=== PATIENT | male | born 1975 | race Caucasian/White ===

== ENCOUNTER → 2017-10-31 08:33 | Outpatient (REF) | payer MEDICAID, SELFPAY ==
[2017-10-31 12:09] LABS: HCT 45.8 % (40.0-50.0); HGB 15.8 g/dL (13.5-17.5); Mean Corp. HGB Concentration 34.5 g/dL (32.0-36.0); Mean Corpuscular Hemoglobin 33.8 pg (27.0-33.0); Mean Corpuscular Volume 97.9 fL (80-95); Mean Platelet Volume 11.4 fL (8.0-11.0); Platelet Count 246 x1000/uL (130-400); RBC 4.68 m/cumm (4.50-6.00); RBC Distribution Width 12.8 % (11.8-14.1); White Blood Cell Count 6.69 k/cumm (4.4-10.8)
[2017-10-31 12:20] LABS: ALT 57 U/L (12-78); AST 28 U/L (15-37); Albumin 4.5 g/dL (3.4-5.0); Alkaline Phosphatase 71 U/L (46-116); Anion Gap 5.6 mmol/L (3-11); BUN 14 mg/dL (7-18); Bilirubin, Total 0.6 mg/dL (0.2-1.0); CO2 30.4 mmol/L (21.0-32.0); CREATININE 1.15 mg/dL (0.70-1.30); Calcium 9.7 mg/dL (8.5-10.1); Chloride 105 mmol/L (98-107); Cholesterol 195 mg/dL (50-200); Glucose 112 mg/dL (70-100); HDL Cholesterol 49 mg/dL (40-60); LDL CHOLESTEROL 145 mg/dL (<100); Potassium 4.5 mmol/L (3.5-5.1); Sodium 141 mmol/L (136-145); Total Protein 7.4 g/dL (6.4-8.2)
[2017-10-31 12:29] LABS: Triglyceride < 25 mg/dL (30-150)
== END ==
LOC: NCHCN 08:33
PROVIDERS: PCP Nurse Practitioner Family; Visit Provider Nurse Practitioner Family
DX: R42 Dizziness and giddiness (principal); Z00.00 Encounter for general adult medical examination without abnormal findings
CPT/HCPCS: 80053; 80061; 83721; 85027

== ENCOUNTER → 2017-11-05 09:29 | Outpatient (REF) | payer MEDICAID, SELFPAY ==
[2017-11-06 11:05] LABS: Hepatitis C Ab w Rflx HCV PCR Reactive (NEGAT)
[2017-11-06 11:52] LABS: HIV-1/2 Ag & Ab Screen Negative (NEGAT)
[2017-11-06 15:16] LABS: Chlamydia Result Negative; GC Result Negative; Specimen Description URINE
[2017-11-07 15:22] LABS: HCV RNA Detection Quantitative Undetected IU/mL (UNDECT)
== END ==
LOC: NCHCN 09:29
PROVIDERS: PCP Nurse Practitioner Family; Visit Provider Nurse Practitioner Family
DX: Z11.3 Encounter for screening for infections with a predominantly sexual mode of transmission (principal); Z11.59 Encounter for screening for other viral diseases; Z11.4 Encounter for screening for human immunodeficiency virus [HIV]
CPT/HCPCS: 86803; 87389; 87491; 87591; 87522

== ENCOUNTER 2018-04-15 17:45 | Emergency (ER) | payer MEDICAID, SELFPAY ==
[2018-04-15 17:47] VITALS: BP 128/87; PULSE 76; TEMP 36.7; O2SAT 94
--- NOTE | 2018-04-15 17:54 | W.ED.GENAD ---
Discharge Plan Disposition Patient Disposition: HOME Condition: Fair Discharge Details Chief Complaint: GenMedical Clinical Impression: Flu-like symptoms, Elevated liver enzymes Primary Care Provider: Theresa De Leon ED Provider: Marichuy Mai Home Meds and New Rx's Prescriptions: New ondansetron 4 mg tablet,disintegrating 4 mg PO QID PRN (Reason: nausea and vomiting) Qty: 10 RF: 0 Discharge Instructions Instructions: Influenza (ED) Additional Instructions: Encourage hydration. Tylenol and/or Motrin as needed for discomfort. Zofran as prescribed for nausea/vomiting. If you develop shortness of breath, difficulty breathing, inability to stay hydrated or other new/worsening symptoms please seek care urgently once again. Please follow up with primary care next week for reevaluation and to discuss having your liver enzymes rechecked. Thank you Referrals: Theresa De Leon [Primary Care Provider] - Discharge Data Discharge Date/Time-TO BE ENTERED AT DEPARTURE: 04/15/18 20:28 Medical Decision Making Patient 42-year-old male presenting today with chief complaint of cough, nausea/vomiting, fatigue times 5 days. Reports a family members have had the flu but he has been around and is concerned that he may have contracted this. He complains that he is unable to hydrate he feels quite weak. On exam, he does appear dehydrated. Lungs are clear. No abdominal pain on exam. Will give IV fluids, IV Zofran and obtain baseline labs. As he also reports cough has been worsening over the past 2 days, concerned for possible pneumonia. Patient smokes marijuana frequently, will obtain cxr. Labs concerning for potassium of 3.3, we will replenish this here. AST and ALT are also elevated, these have not been elevated historically. I discussed these findings with the patient. No history of hepatitis or large amount of alcohol consumption. Advised this may be linked to his current viral illness and that he should have this rechecked once well by his primary care physician CXR reviewed by radiologist: FINDINGS: The cardiomediastinal silhouette and pulmonary vasculature are within normal limits. The lungs are clear. No pleural effusion or pneumothorax is identified. IMPRESSION: No acute process. Discussed this with the patient. Advised flu-like illness. As he is out of the window for treatment, did not test for influenza. He is hydrating, able to eat crackers and took oral potassium. Prescribed Zofran for nausea. Advised on new/worsening symptoms and when to seek care urgently once again. Advised f/u with PCP next week for reevaluation and to discuss elevated liver enzymes. All ofhis questions and concerns were addressed, he is in agreement iwth this plan. HPI General Date/Time Provider Initiated Documentation: 04/15/18 17:54. Related Data Home Medications Medication Instructions Recorded Confirmed ondansetron 4 mg PO QID PRN #10 tab 04/15/18 Previous Rx's Medication Instructions Recorded ondansetron 4 mg PO QID PRN #10 tab 04/15/18 Allergies Allergy/AdvReac Type Severity Reaction Status Date / Time No Known Allergies Allergy Unverified 12/02/14 17:15 General Stated Complaint: GenMedical BRAD: 3 PFSH Social History Smoking/Tobacco Use Status: Former Tobacco Use Course Vital Signs Temperature 36.7 C 04/15/18 17:47 Pulse 76 04/15/18 17:47 Blood Pressure 128/87 04/15/18 17:47 Pulse Oximetry 94 L 04/15/18 17:47 Temperature 36.7 C 04/15/18 17:47 Temperature Source Temporal Artery Scan 04/15/18 17:47 Pulse 76 04/15/18 17:47 Respiratory Effort Non-Labored 04/15/18 17:49 Blood Pressure 128/87 04/15/18 17:47 Blood Pressure Position Supine 04/15/18 17:47 Pulse Oximetry 94 L 04/15/18 17:47 Oxygen Delivery Method Room Air 04/15/18 17:47 Oxygen Flow Rate 0 04/15/18 17:47
[2018-04-15] MEDS: Normal Saline 1,000 ML 1000 ML IV ×2 (18:05→19:04)
[2018-04-15 18:18] LABS: Absolute Basophil Count 0.02 k/cumm (0.0-0.2); Absolute Lymphocyte Count 1.37 k/cumm (1.2-3.4); Absolute Monocyte Count 0.61 k/cumm (0.11-0.7); Basophils % 0.5; HCT 42.3 % (40.0-50.0); HGB 15.3 g/dL (13.5-17.5); Lymphocytes % 31.9; Mean Corp. HGB Concentration 36.2 g/dL (32.0-36.0); Mean Corpuscular Hemoglobin 33.4 pg (27.0-33.0); Mean Corpuscular Volume 92.4 fL (80-95); Mean Platelet Volume 9.8 fL (8.0-11.0); Monocytes % 14.2; Neutrophils % 53.4; Platelet Count 222 x1000/uL (130-400); RBC 4.58 m/cumm (4.50-6.00); RBC Distribution Width 12.7 % (11.8-14.1)
[2018-04-15 18:45] LABS: ALT 119 U/L (12-78); AST 82 U/L (15-37); Alkaline Phosphatase 75 U/L (46-116); Anion Gap 9.7 mmol/L (3-11); BUN 18 mg/dL (7-18); Bilirubin, Total 0.6 mg/dL (0.2-1.0); CO2 27.3 mmol/L (21.0-32.0); CREATININE 1.18 mg/dL (0.70-1.30); Chloride 103 mmol/L (98-107); Glucose 91 mg/dL (70-100); Potassium 3.3 mmol/L (3.5-5.1); Sodium 140 mmol/L (136-145); Total Protein 7.5 g/dL (6.4-8.2)
[2018-04-15] MEDS: Ondansetron 4 MG/2 ML VIAL IVP (18:58)
[2018-04-15 19:05] VITALS: BP 109/55; PULSE 70; RESP 20; TEMP 36.9; O2SAT 95
--- NOTE | 2018-04-15 19:15 | NUR.NOTE ---
Nursing Note: Pt on second liter of fluid, given water and saline crackers to trial po challenge. persistent cough. awaiting CXR. no acute distress, will continue to monitor.
[2018-04-15] MEDS: Potassium Chloride 20 MEQ TABCR PO (19:16)
--- NOTE | 2018-04-15 19:35 | DI.RAD_ITS ---
SYMPTOM/DIAGNOSIS: COUGH PA AND LATERAL CHEST: The heart is normal in size. The lungs are clear. The mediastinal structures and pleura appear intact. CONCLUSION: Normal chest. No evidence of acute cardiopulmonary disease.
--- NOTE | 2018-04-15 20:05 | DI.VRAD_ITS ---
EXAM: XR Chest, 2 Views EXAM DATE/TIME: 04/15/2018 7:14 PM CLINICAL HISTORY: 42 years old, male; Signs and symptoms; Cough; Patient HX: Cough and flu like symptoms since saturday TECHNIQUE: XR of the chest, 2 views. COMPARISON: No relevant prior studies available. FINDINGS: The cardiomediastinal silhouette and pulmonary vasculature are within normal limits. The lungs are clear. No pleural effusion or pneumothorax is identified. IMPRESSION: No acute process. Dictated and Authenticated by: Johan Stephens MD. Ordering:TEE Benedict MD
[2018-04-15] MEDS: Ondansetron O.D.T. 4 MG TABEF 12 MG PO (20:24)
[2018-04-15 20:27] VITALS: PULSE 70; RESP 116; TEMP 36.9; O2SAT 94
== END 2018-04-15 20:28 | disposition home or self-care (01) ==
PROVIDERS: Emergency Provider Physician Assistant; PCP Nurse Practitioner Family
DX: J11.1 Influenza due to unidentified influenza virus with other respiratory manifestations (principal); R94.5 Abnormal results of liver function studies
CPT/HCPCS: 36415; 80053; 96361; 96374; 99284; 71046; 85025; J2405

== ENCOUNTER 2018-09-04 18:07 | Emergency (ER) | payer MEDICAID, SELFPAY ==
[2018-09-04 18:22] VITALS: BP 137/83; PULSE 67; RESP 14; TEMP 37.2; O2SAT 95
--- NOTE | 2018-09-04 18:33 | ED.GENADUL_ITS ---
Discharge Plan Disposition Patient Disposition: HOME Condition: Improving Discharge Details Chief Complaint: Orthopedic Clinical Impression: Contusion of hand, left Primary Care Provider: Theresa De Leon ED Provider: Zaheer Monroe Home Meds and New Rx's Prescriptions: No Action No Known Home Meds RF: 0 Discharge Instructions Instructions: Contusion in Adults (ED) Additional Instructions: Use compression, elevation, ice to reduce swelling. You will likely have bruising that develops over the next 24 hours. Return for any acute concern. Medical Decision Making 43-year-old male who presents with accidental trauma to the left hand when he was air punching at his home and struck his wooden bureau. He has pre-standing left ulnar nerve dysfunction and poor sensation in that hand. He presents with left hand swelling and discomfort. Referred for XRay, which does not reveal underlying bony fracture. Discussed home management the patient including compression, elevation, ice to reduce swelling. He understands to expect bruising. He is stable for discharge to home HPI General Mode of arrival: ambulatory . Date/Time Provider Initiated Documentation: 09/04/18 18:25 . Limitations to Documentation: no limitations . Information obtained by: patient . History of Present Illness 43 year old M presents to the emergency department with the chief complaint of Accidental blunt trauma to left hand, described as mild, Quality is described as dull and constant, and is localized to the upper extremity. Patient reports no radiation. Patient started experiencing this minute(s) and it has been constant. No relieving factors improve symptom(s), No exacerbating factors reported . Patient notes other (Patient has pre-standing ulnar nerve dysfunction and poor sensation of hand). Patient did receive the following treatments prior to arrival, none Related Data Home Medications Medication Instructions Recorded Confirmed Unknown [No Known Home Meds] 09/04/18 09/04/18 Allergies Allergy/AdvReac Type Severity Reaction Status Date / Time No Known Allergies Allergy Unverified 09/04/18 18:26 General Stated Complaint: Orthopedic BRAD: 3 Review of Systems Review of Systems No other injury. No new numbness or tingling. 4 systems reviewed and otherwise no PFSH Social History Smoking/Tobacco Use Status: Former Tobacco Use Alcohol Intake: current Drug use: Never Do you feel safe at home: Yes Do you feel safe in your relationship?: Yes Exam Narrative Exam Narrative: GEN: awake, alert, oriented 3. Pleasant, well groomed, interactive. HEAD: Normocephalic, atraumatic EXT: Full ROM, left hand fourth and fifth metacarpal tenderness and swelling. Full range of motion intact, sensation is diminished at baseline per patient Neuro: Grossly normal neurologic exam, conversant, interactive. Psych: Speech fluent, thoughts congruent, affect normal Course Vital Signs Temperature 37.2 C 09/04/18 18:22 Pulse 67 09/04/18 18:22 Respiratory Rate 14 09/04/18 18:22 Blood Pressure 137/83 09/04/18 18:22 Pulse Oximetry 95 09/04/18 18:22 Temperature 37.2 C 09/04/18 18:22 Temperature Source Temporal Artery Scan 09/04/18 18:22 Pulse 67 09/04/18 18:22 Respiratory Rate 14 09/04/18 18:22 Respiratory Effort Non-Labored 09/04/18 18:24 Blood Pressure 137/83 09/04/18 18:22 Blood Pressure Position Sitting 09/04/18 18:22 Pulse Oximetry 95 09/04/18 18:22 Oxygen Delivery Method Room Air 09/04/18 18:22 Oxygen Flow Rate 0 09/04/18 18:22 Pain Level 0 09/04/18 18:25
--- NOTE | 2018-09-04 18:42 | DI.RAD_ITS ---
SYMPTOM/DIAGNOSIS: PAIN AT 4/5TH METACARPAL LEFT HAND: Three views. Comparison 12/02/14 There is an old healed left 5th metacarpal fracture. No acute fracture or dislocation is seen. No radiopaque foreign bodies are seen in the soft tissues. IMPRESSION: No acute abnormality.
--- NOTE | 2018-09-04 18:56 | DI.VRAD_ITS ---
EXAM: XR Left Hand EXAM DATE/TIME: 09/04/2018 6:31 PM CLINICAL HISTORY: 43 years old, male; Pain; Hand; Bilateral; Patient HX: 4/5th metacarpal TECHNIQUE: Imaging protocol: XR Left hand. Views: 3 or more views. COMPARISON: No relevant prior studies available. FINDINGS: Bones/joints: No acute fractures are identified. There is a chronic healed fracture of the distal left fifth metacarpal. Normal alignment. Carpal relationships are normal. The visualized distal radius and ulna are well aligned and intact. Soft tissues: Question mild medial dorsal soft tissue swelling. No foreign bodies. IMPRESSION: 1. No evidence of acute fracture or dislocation. 2. Chronic healed fracture of the distal left fifth metacarpal. 3. Question mild medial dorsal soft tissue swelling. 4. No foreign body. Dictated and Authenticated by: Celestine Scherer MD. Ordering:CHANCE Schwab MD
== END 2018-09-04 19:17 | disposition home or self-care (01) ==
PROVIDERS: Emergency Provider Emergency Medicine; PCP Nurse Practitioner Family
DX: S60.222A Contusion of left hand, initial encounter (principal); W22.03XA Walked into furniture, initial encounter
CPT/HCPCS: 99283; 73130; 99282

== ENCOUNTER 2019-06-21 07:41 | Emergency (ER) | payer SELFPAY ==
[2019-06-21] VITALS (26 sets, daily range): BP systolic 110–131; BP diastolic 69–79; PULSE 41–69; TEMP 36.7; O2SAT 94–99
--- NOTE | 2019-06-21 08:18 | W.ED.GENAD ---
Discharge Plan Disposition Patient Disposition: HOME Condition: Stable Discharge Details Chief Complaint: Abd Prob Clinical Impression: Renal stone Primary Care Provider: Theresa De Leon ED Provider: Trevor Carney Home Meds and New Rx's Prescriptions: New tamsulosin [Flomax] 0.4 mg capsule 0.4 mg PO DAILY Qty: 5 RF: 0 naproxen [Naprosyn] 500 mg tablet 500 mg PO BID Qty: 10 RF: 0 Discharge Instructions Instructions: Kidney Stones (ED) Additional Instructions: Flomax and Naprosyn as directed. Plenty of fluids to avoid dehydration. Please watch for new or worsening symptoms and return to the ER for any concerns. I have forwarded your information to our urology team, please contact them tomorrow for prompt outpatient reevaluation. Referrals: Brian Burroughs MD [ [facility] STAFF PHYSICIAN] - Medical Decision Making 43-year-old gentleman with a history of vasectomy last October, reports chronic aching in his groin since the procedure. This morning upon waking roughly 1 hour ago he reports severe right back and flank discomfort that does not radiate down to his groin. Denies any true abdominal pain, increased testicle pain, denies testicle swelling. He appears uncomfortable, is dry heaving. Clinically I am highly suspicious of a renal stone however certainly cannot exclude diagnoses such as acute appendicitis, inguinal hernia, testicle torsion, epididymitis, UTI, etc. Will obtain IV access, give IV fluid, Zofran, Toradol, obtain CT abdomen and pelvis for renal colic without contrast and reassess. Upon reassessment patient reports that his pain went from a 9 out of 10 down to a 3, is just a dull ache, and he feels this in his right lower back. Denies any flank discomfort at this time. Reports that the aching in his groin-testicles is baseline. He appears much more comfortable, no longer dry heaving. Laboratory values benign, still awaiting urinalysis. A second liter of IV fluid given. I reviewed the CT, there appears to be a right-sided stone however awaiting official radiology read. For full radiology read the CT as right ureteral vesicular junction 5 mm stone causing moderate hydroureter and mild hydronephrosis. Punctate nonobstructing left nephrolithiasis. Bladder is decompressed but there is mild circumferential wall thickening, recommend clinical correlation. Possibly mild hepatic steatosis. CT findings discussed with patient. Awaiting urinalysis to be sure he does not have an infected stone. Did place the patient on the urology follow-up list and will give the patient urology referral to contact their office tomorrow. He was given oral Flomax as well. Urinalysis reveals hematuria otherwise unremarkable, no signs of infection. Discussed findings with patient. He has no additional questions or concerns. Reports his pain is almost nonexistent at this point and is tolerated p.o. intake while here in the ER. He will be discharged with Flomax, anti-inflammatories, and contact urology tomorrow. Given his laboratory values, and positive CT findings, extremely low suspicion for appendicitis, UTI, infected stone, pyelonephritis, testicular torsion, etc. Medical Records Medical records reviewed: Yes I reviewed the patient's medical records. Imaging Data Radiologic Study: Attestation: I personally reviewed and interpreted this imaging study as follows: Imaging: CT Scan Radiologist's impression: Right ureterovesicular junction 5 mm stone causing moderate hydroureter and mild hydronephrosis. Punctate nonobstructing left nephrolithiasis. Bladder is decompressed, mild wall thickening. Possibly mild hepatic steatosis Lab Data Lab results reviewed: Yes I reviewed the patient's lab results. Lab results narrative: Laboratory Tests Range/Units 06/21/19 06/21/19 06/21/19 07:50 07:50 11:11 WBC (4.4-10.8) k/cumm 9.56 RBC (4.50-6.00) m/cumm 4.86 Hgb (13.5-17.5) g/dL 16.3 Hct (40.0-50.0) % 46.7 MCV (80-95) fL 96.1 H MCH (27.0-33.0) pg 33.5 H MCHC (32.0-36.0) g/dL 34.9 RDW (11.8-14.1) % 13.2 Plt Count (130-400) x1000/uL 342 MPV (8.0-11.0) fL 10.7 Immature Gran % % 0.2 Neutrophils % 52.0 Lymphocytes % 34.6 Monocytes % 7.3 Eosinophils % 5.6 Basophils % 0.3 Absolute Neutrophils (1.2-6.7) k/cumm 4.96 Absolute Lymphocytes (1.2-3.4) k/cumm 3.31 Absolute Monocytes (0.11-0.7) k/cumm 0.70 Absolute Eosinophils (0.0-0.7) k/cumm 0.54 Absolute Basophils (0.0-0.2) k/cumm 0.03 Sodium (136-145) mmol/L 142 Potassium (3.5-5.1) mmol/L 4.0 Chloride (98-107) mmol/L 106 Carbon Dioxide (21.0-32.0) mmol/L 28.3 Anion Gap (3-11) mmol/L 7.7 BUN (7-18) mg/dL 14 Creatinine (0.70-1.30) mg/dL 1.18 Estimated GFR/1.73 m2 (mL/min/1.73m2) >= 60.00 Glucose (74-106) mg/dL 107 H Calcium (8.5-10.1) mg/dL 9.5 Total Bilirubin (0.2-1.0) mg/dL 0.3 AST (15-37) U/L 25 ALT (16-63) U/L 49 Alkaline Phosphatase (46-116) U/L 78 Total Protein (6.4-8.2) g/dL 7.6 Albumin (3.4-5.0) g/dL 4.2 Lipase (73-393) U/L 440 H Urine Color (Yellow) Yellow Urine Clarity (Clear) Clear Urine pH (5-8) 6.5 Ur Specific Coulter (1.005-1.025) 1.015 Urine Protein (Negative) mg/dL Negative Urine Ketones (Negative) mg/dL Negative Urine Blood (Negative) Large H Urine Nitrite (Negative) Negative Urine Bilirubin (Negative) Negative Urine Urobilinogen (Up TO 0.2) EU/dL 0.2 Ur Leukocyte Esterase (Negative) Negative Urine RBC (0-2) HPF 20-50 H Urine WBC (0-5) HPF 3-5 Ur Epithelial Cells (Negative) HPF Few Urine Crystals (Negative) HPF Negative Urine Bacteria (Negative) HPF Few Urine Casts (Negative) LPF Negative Urine Mucus (Negative) Negative Urine Other (Negative) Negative Ur Culture Indicated? No Urine Glucose (Negative) mg/dL Negative HPI General Mode of arrival: ambulatory. Date/Time Provider Initiated Documentation: 06/21/19 07:42. Limitations to Documentation: no limitations. Information obtained by: patient. HPI Narrative: This is a 43-year-old gentleman status post vasectomy October of last year. He reports that since the vasectomy he has had some dull aching in his right testicle and groin, has discussed this with his urologist. He reports that this morning approximately 1 hour ago upon waking he had right flank, back, groin and scrotal pain, severe, associated with nausea and dry heaving. Denies any fever, chest pain, shortness of breath, abdominal pain. Denies dysuria or hematuria. No diarrhea or constipation. He reports that when he went to bed last night he was otherwise asymptomatic. Denies recent illness or trauma. Related Data Home Medications Medication Instructions Recorded Confirmed naproxen [Naprosyn] 500 mg PO BID #10 tab 06/21/19 tamsulosin [Flomax] 0.4 mg PO DAILY #5 cap 06/21/19 Previous Rx's Medication Instructions Recorded naproxen [Naprosyn] 500 mg PO BID #10 tab 06/21/19 tamsulosin [Flomax] 0.4 mg PO DAILY #5 cap 06/21/19 Allergies Allergy/AdvReac Type Severity Reaction Status Date / Time No Known Allergies Allergy Unverified 06/21/19 07:48 General Stated Complaint: Abd Prob BRAD: 3 Review of Systems Constitutional Constitutional: Denies fatigue, Denies fever(s) and Denies headache(s) ENT Ears, Nose, Mouth, and Throat: Denies headache(s) and Denies sore throat Cardiovascular Cardiovascular: Denies chest pain and Denies dyspnea Respiratory Respiratory: Denies cough and Denies dyspnea Gastrointestinal Gastrointestinal: Denies abdominal pain, Denies diarrhea, Reports nausea and Reports vomiting Genitourinary Genitourinary: Denies difficulty urinating, Denies dysuria, Reports flank pain (Right flank), Denies penile discharge, Reports testicular pain (Entire scrotum, worse in the right side) and Denies urinary frequency Musculoskeletal Musculoskeletal: Reports back pain Integumentary/Breasts Skin/Breast: Denies rash Neurologic Neurologic: Denies headache(s) Endocrine Endocrine: Denies fatigue [facility] Social History Smoking/Tobacco Use Status: Former Tobacco Use Alcohol Intake: current Drug use: Never Substance use type: marijuana Do you feel safe at home: Yes Do you feel safe in your relationship?: Yes Exam Const General: cooperative, healthy appearing, comfortable and in distress mild (Actively dry heaving) Orientation: alert and awake HENTX Head: normal to inspection, normocephalic and atraumatic Mouth: moist mucous membranes Eyes Conjunctivae: conjunctivae normal Neck Neck: normal visual inspection, trachea midline and supple Resp Effort & Inspection: normal respiratory effort and able to speak in complete sentences Auscultation: clear to auscultation bilaterally Cardio Rate: regular rate Rhythm: regular rhythm GI Inspection: normal to inspection Palpation: soft, not firm, no guarding, not rigid and tender (Diffuse mild right flank) with no rebound tenderness Auscultation: normal bowel sounds Penis: normal penis Meatus: meatus normal Scrotum: scrotum normal and no inguinal hernias Testes: normal Back/Spine/Pelvis Back: back tenderness (Right inferior thoracic, superior lumbar) Skin General skin exam: no rashes or lesions noted Neuro General: patient alert, patient awake, moves all extremities and no focal motor deficits Motor: muscle tone normal throughout Sensory Exam: no sensory deficits noted Psych Appearance: grossly normal Mental Status: mental status grossly normal Course Vital Signs Vital signs: Vital Signs Temperature 36.7 C 06/21/19 07:43 Pulse 69 06/21/19 07:43 Blood Pressure 123/75 06/21/19 07:43 Pulse Oximetry 99 06/21/19 07:43 Temperature 36.7 C 06/21/19 07:43 Temperature Source Oral 06/21/19 07:43 Pulse 69 06/21/19 07:43 Respiratory Effort Non-Labored 06/21/19 07:47 Blood Pressure 123/75 06/21/19 07:43 Blood Pressure Position Sitting 06/21/19 07:43 Pulse Oximetry 99 06/21/19 07:43 Oxygen Delivery Method Room Air 06/21/19 07:43 Oxygen Flow Rate 0 06/21/19 07:43 Pain Level 10 06/21/19 07:43
[2019-06-21] MEDS: Ketorolac 30 MG/ML VIAL IVP (08:23)
[2019-06-21] MEDS: Normal Saline 1,000 ML 1000 ML IV ×2 (08:23→09:20)
[2019-06-21] MEDS: Ondansetron 4 MG/2 ML VIAL IVP (08:24)
--- NOTE | 2019-06-21 08:28 | DI.CT_ITS ---
EXAM: CT RENAL COLIC WO CLINICAL HISTORY: R flank pain TECHNIQUE: The study was performed without contrast. COMPARISON: No exams were available for comparison FINDINGS: Noncontrast CT examination of the abdomen and pelvis was performed. Images obtained through the lung bases are unremarkable. There is question of mild hepatomegaly and mild hepatic steatosis. Gallbla dder has been surgically removed. No biliary dilatation. Unremarkable appearance of the spleen and pancreas. Abdominal aorta is of normal diameter. No abdominal or pelvic adenopathy. No significant abdominal wall hernia. Appendix is normal. No evidence of bowel obstruction or diverticulitis. Adrenals appear normal bilaterally. There are multiple tiny nonobstructing left renal calculi. There is an obstructing 5 millimeter in d iameter calculus of the right ureter at the ureterovesical junction. There is moderate right hydrone phrosis and hydroureter. Urinary bladder is essentially empty. No additional ureteral calcification s identified on either side. IMPRESSION: 5 millimeter obstructing right ureterovesical junction stone. Additional tiny nonobstructing left re nal calculi are also noted.
[2019-06-21 08:31] LABS: Abs Immature Grans 0.02 k/cumm (0.0-0.09); Absolute Basophil Count 0.03 k/cumm (0.0-0.2); Absolute Eosinophil Count 0.54 k/cumm (0.0-0.7); Absolute Lymphocyte Count 3.31 k/cumm (1.2-3.4); Absolute Neutrophil Count 4.96 k/cumm (1.2-6.7); Basophils % 0.3; Eosinophils % 5.6; HCT 46.7 % (40.0-50.0); HGB 16.3 g/dL (13.5-17.5); Immature Grans % 0.2 %; Lymphocytes % 34.6; Mean Corp. HGB Concentration 34.9 g/dL (32.0-36.0); Mean Corpuscular Hemoglobin 33.5 pg (27.0-33.0); Mean Corpuscular Volume 96.1 fL (80-95); Mean Platelet Volume 10.7 fL (8.0-11.0); Monocytes % 7.3; Platelet Count 342 x1000/uL (130-400); RBC 4.86 m/cumm (4.50-6.00); RBC Distribution Width 13.2 % (11.8-14.1); White Blood Cell Count 9.56 k/cumm (4.4-10.8)
[2019-06-21 08:45] LABS: ALT 49 U/L (16-63); AST 25 U/L (15-37); Albumin 4.2 g/dL (3.4-5.0); Alkaline Phosphatase 78 U/L (46-116); Anion Gap 7.7 mmol/L (3-11); BUN 14 mg/dL (7-18); Bilirubin, Total 0.3 mg/dL (0.2-1.0); CO2 28.3 mmol/L (21.0-32.0); CREATININE 1.18 mg/dL (0.70-1.30); Calcium 9.5 mg/dL (8.5-10.1); Chloride 106 mmol/L (98-107); Glucose 107 mg/dL (74-106); Lipase 440 U/L (73-393); Sodium 142 mmol/L (136-145); Total Protein 7.6 g/dL (6.4-8.2)
--- NOTE | 2019-06-21 08:52 | DI.VRAD_ITS ---
PROCEDURE INFORMATION: Exam: CT Abdomen And Pelvis Without Contrast Exam date and time: 06/21/2019 8:10 AM Age: 43 years old Clinical indication: Abdominal pain; Patient HX: Right sided flank pain, radiating anteriorly, and inferiorly to right testicle. Pain since this morning, no history of kidney stones. TECHNIQUE: Imaging protocol: Computed tomography of the abdomen and pelvis without contrast. Radiation optimization: All CT scans at this facility use at least one of these dose optimization techniques: automated exposure control; mA and/or kV adjustment per patient size (includes targeted exams where dose is matched to clinical indication); or iterative reconstruction. COMPARISON: No relevant prior studies available. FINDINGS: Lungs: The visualized portions of the lungs are normal. Liver: Mild diffuse decreased attenuation of the liver when compared to the spleen which could suggest mild steatosis. No focal lesion. Gallbladder and bile ducts: There has been a cholecystectomy. There is no common bile duct dilation. There is no intrahepatic bile duct dilation. Pancreas: Unremarkable. No ductal dilation. Spleen: Unremarkable. No splenomegaly. Adrenals: Unremarkable. No mass. Kidneys and ureters: There is a 5 mm right ureterovesicular junction stone causing moderate hydroureter and mild hydronephrosis. Punctate nonobstructing left nephrolithiasis. No left ureter stones. No left hydronephrosis. Stomach and bowel: Mild diverticulosis is present in the distal colon. There is no evidence of intestinal obstruction. There is no wall thickening to suggest enteritis or colitis. The stomach is normal. Appendix: No evidence of appendicitis. Intraperitoneal space: Unremarkable. No free air. No significant fluid collection. Vasculature: Unremarkable. No abdominal aortic aneurysm. Lymph nodes: Scattered retroperitoneal lymph nodes not particularly enlarged by CT size criteria. Bladder: The urinary bladder is somewhat decompressed with mild circumferential wall thickening. Reproductive: Unremarkable as visualized. Bones/joints: There is no evidence of acute fracture. Mild lumbar spondylosis. No concerning osseous lesion. Soft tissues: Small fat containing umbilical hernia. IMPRESSION: 1. Right ureterovesicular junction 5 mm stone causing moderate hydroureter and mild hydronephrosis. 2. Punctate nonobstructing left nephrolithiasis. 3. Although the urinary bladder is somewhat decompressed there is mild circumferential wall thickening. Recommend clinical correlation. 4. Possibly mild hepatic steatosis. Dictated and Authenticated by: Celestine Alaniz MD. Ordering:CHELLY Murray MD
--- NOTE | 2019-06-21 08:57 | NUR.NOTE ---
[facility]:
[2019-06-21] MEDS: Tamsulosin 0.4 MG CAPCR PO (09:13)
[2019-06-21 11:26] LABS: Bilirubin Negative (Negative); Blood Large (Negative); Clarity Clear (Clear); Glucose Negative (Negative); Ketones Negative (Negative); Leukocyte Esterase Negative (Negative); Nitrite Negative (Negative); Specific Gravity 1.015 (1.005-1.025); Urobilinogen 0.2 EU/dL (Up TO 0.2); pH 6.5 (5-8)
[2019-06-21 11:50] LABS: RBC 20-50 HPF (0-2)
[2019-06-21 11:51] LABS: Bacteria Few HPF (Negative); C & S Indicated? No; Casts Negative LPF (Negative); Crystals Negative HPF (Negative); Epithelial Cells Few HPF (Negative); Mucus Negative (Negative); Other Cells Negative (Negative)
== END 2019-06-21 09:28 | disposition home or self-care (01) ==
PROVIDERS: Emergency Provider Physician Assistant; PCP Nurse Practitioner Family
DX: N13.2 Hydronephrosis with renal and ureteral calculous obstruction (principal); N13.4 Hydroureter
CPT/HCPCS: 36415; 80053; 83690; 96361; 96374; 96375; 99284; 74176; 81003; 81015; 85025; J1885; J2405

== ENCOUNTER 2022-04-12 16:38 | Outpatient (REF) | payer SELFPAY ==
[2022-04-12 18:41] LABS: ALT 80 U/L (16-63); AST 48 U/L (15-37); Albumin 4.6 g/dL (3.4-5.0); Alkaline Phosphatase 84 U/L (46-116); Bilirubin, Direct 0.2 mg/dL (0.0-0.2); Bilirubin, Total 0.6 mg/dL (0.2-1.0); Total Protein 7.6 g/dL (6.4-8.2)
== END 2022-04-12 16:39 | disposition home or self-care (01) ==
LOC: NCHCN 16:38
PROVIDERS: PCP Nurse Practitioner Family; Visit Provider Nurse Practitioner Family
DX: Z00.00 Encounter for general adult medical examination without abnormal findings (principal); R73.03 Prediabetes
CPT/HCPCS: 80076

== ENCOUNTER 2022-05-10 19:12 | Outpatient (REF) | payer SELFPAY ==
[2022-05-10 19:13] LABS: HCT 44.9 % (40.0-50.0); HGB 15.1 g/dL (13.5-17.5); MCH 32.3 pg (27.0-33.0); MCHC 33.6 % (32.0-36.0); MCV 96 fL (80-95); MPV 10.3 fL (8.0-11.0); Platelet Count 309 10^3/uL (130-400); RBC 4.67 10^6/uL (4.36-5.78); RDW 13.4 % (11.8-14.1); RDW-SD 47.8 fL; WBC 9.05 10^3/uL (4.4-10.8)
[2022-05-10 19:19] LABS: INR 0.9 (0.9-1.1); Prothrombin Time 9.3 sec (9.3-11.0)
[2022-05-10 19:37] LABS: Iron 82 ug/dL (65-175); Total Iron Binding Capacity 335 ug/dL (250-450); Transferrin Sat 24 % (20-55)
[2022-05-10 19:41] LABS: Ferritin 191 ng/mL (26-388)
[2022-05-14 11:26] LABS: Hepatitis C Ab w Rflx HCV PCR Reactive (Negative)
[2022-05-14 13:19] LABS: HBs Antibody, Quant <3.1 mIU/mL (See Note); Hepatitis B Surface Ab Negative (See Note)
[2022-05-16 14:08] LABS: HCV RNA Qualitative Undetected (Undetected)
== END 2022-05-10 19:13 | disposition home or self-care (01) ==
LOC: NCHCN 19:12
PROVIDERS: PCP Nurse Practitioner Family; Visit Provider Nurse Practitioner Family
DX: R74.8 Abnormal levels of other serum enzymes (principal)
CPT/HCPCS: 85027; 86706; 86803; 87522; 82728; 83540; 83550; 85610

== ENCOUNTER 2022-05-28 02:12 | Outpatient (CLI) | payer OTHER, SELFPAY ==
--- NOTE | 2022-05-28 | DI.MRI_ITS ---
Exam(s) MR UPPER JOINT RT WO EXAM: MR UPPER JOINT RT WO CLINICAL HISTORY: BICEPS TENDINITIS,M75.21,SUBACROMIAL IMPINGEMENT,M75.41,NEURAPRAXIA. TECHNIQUE: Multiplanar multisequence MRI was performed. COMPARISON: Outside plain films April 16 FINDINGS: BONES: There is no fracture or contusion pattern. JOINTS:The acromioclavicular joint is shows mild spurring. There is apparent mild impingement at thi s level. Spurring at tip of acromion. The glenohumeral joint is normal. TENDONS: Supraspinatus: Areas of focal high signal in the supraspinatus tendon could represent partial tear ve rsus tendinitis.. No full-thickness tear is visible. Infraspinatus: Unremarkable. Subscapularis: Unremarkable. Teres Minor: Unremarkable. Biceps and [place]: Unremarkable. MUSCLES: Unremarkable. GLENOID LABRUM: Unremarkable on this noncontrast examination. SOFT TISSUES: Unremarkable. OTHER: Subacromial and subdeltoid bursae a minimal amount of fluid.. IMPRESSION: Partial tear versus tendinitis of the supraspinatus. No evidence of biceps tendon tear or tendinitis . DATA REPOSITORY:
== END 2022-05-28 02:32 ==
PROVIDERS: PCP Nurse Practitioner Family; Visit Provider Specialist
DX: M75.21 Bicipital tendinitis, right shoulder (principal); M75.41 Impingement syndrome of right shoulder; M25.811 Other specified joint disorders, right shoulder; S44.91XA Injury of unspecified nerve at shoulder and upper arm level, right arm, initial encounter
CPT/HCPCS: 73221

== ENCOUNTER 2022-06-18 15:55 | Outpatient (REF) | payer SELFPAY ==
[2022-06-18 16:51] LABS: ALT 95 U/L (16-63); AST 42 U/L (15-37); Albumin 4.2 g/dL (3.4-5.0); Alkaline Phosphatase 83 U/L (46-116); Anion Gap 10.2 mmol/L (3-11); BUN 13 mg/dL (7-18); Bilirubin, Total 0.4 mg/dL (0.2-1.0); CO2 25.8 mmol/L (21.0-32.0); CREATININE 1.1 mg/dL (0.70-1.30); Calcium 9.8 mg/dL (8.5-10.1); Chloride 102 mmol/L (98-107); Estimated GFR 84.37 (mL/min/1.73m2); Glucose 139 mg/dL (74-106); Potassium 4.3 mmol/L (3.5-5.1); Sodium 138 mmol/L (136-145); Total Protein 7.3 g/dL (6.4-8.2)
== END 2022-06-18 15:56 | disposition home or self-care (01) ==
LOC: NCHCN 15:55
PROVIDERS: PCP Nurse Practitioner Family; Visit Provider Nurse Practitioner Family
DX: R74.8 Abnormal levels of other serum enzymes (principal); R73.09 Other abnormal glucose
CPT/HCPCS: 80053; 83036

== ENCOUNTER 2022-06-30 16:30 | Emergency (ER) | payer OTHER, SELFPAY ==
[2022-06-30] VITALS (11 sets, daily range): BP systolic 136–152; BP diastolic 77–85; PULSE 67–74; RESP 15–16; TEMP 37.3–38.2; O2SAT 89–97
--- NOTE | 2022-06-30 17:00 | DI.CT_ITS ---
Exam(s) CT CHEST PE ABD PELVIS W EXAM: CT CHEST PE ABD PELVIS W CLINICAL HISTORY: Cough, Post operative, Abd Pain. TECHNIQUE: Imaging Protocol: Axial CT angiography was performed with multi-slice acquisition and mu lti-planar and/or 3D reconstructions. CONTRAST MATERIAL: Intravenous: Omnipaque 350contrast volume:100 mL COMPARISON: CT CT RENAL COLIC WO from 06/21/2019 FINDINGS: CHEST: Tracheobronchial tree: Patent where visualized. Pulmonary parenchyma: No consolidation or dominant measurable mass. No architectural distortion. Atel ectasis is seen in the left lung base. No focal consolidating infiltrates are present. Pulmonary Arteries: No evidence of filling defect to suggest pulmonary emboli. Mediastinum and Beba: No dominant adenopathy or fluid collection. The esophagus is unremarkable. Visualized thyroid gland: Unremarkable. Pleura: No effusion or pneumothorax. Heart: The heart is not dilated. No coronary artery calcifications are seen. No pericardial effusion. Aorta: Thoracic aorta non-dilated. The examination was not time to assess for aortic dissection. Bones: Within normal limits for the patient's age. Soft tissues: Gynecomastia. ABDOMEN: Liver: There is decreased attenuation of the liver suggesting fatty infiltration. No measurable mass . Portal, Superior Mesenteric, and Splenic Veins: Unremarkable. Gallbladder and Biliary Tract: Status post cholecystectomy. No significant biliary ductal dilatation . Pancreas: Normal density, no abnormal calcifications or inflammatory process. Spleen: Normal. Adrenals: No masses seen. Kidneys: Normal size, contour and axis. There is bilateral nephrolithiasis. No hydronephrosis. No m asses seen. Abdominal Aorta: Abdominal portion non-dilated. Mild atherosclerosis. Bowel: There is diverticulosis seen in the colon, but no evidence of acute diverticulitis. Appendix is unremarkable. There is no evidence of bowel obstruction or bowel wall thickening. Peritoneal Cavity: No ascites, collection or mesenteric inflammatory response. No free air. Lymph Nodes: Within normal limits. Bones: Within normal limits for the patient's age. Soft Tissues: Unremarkable. PELVIS: Bladder: Symmetric distention, no gross wall thickening. Reproductive Organs: Unremarkable as visualized. Lymph Nodes: Within normal limits. Bones: Within normal limits. IMPRESSION: 1. No evidence pulmonary embolism or aneurysm. 2. No acute pulmonary process. 3. No acute abdominal or pelvic process. RADIATION DOSE DELIVERED: 1,968.3mGy.cm Total DLP DATA REPOSITORY: All CT scans at this facility are submitted to the National Radiology Data Registry (NRDR) Dose Index Registry (DIR) with the [employer] (ACR). RADIATION OPTIMIZATION: All CT scans at this facility use at least one of these dose optimization te chniques: automated exposure control; mA and/or kV adjustment per patient size (includes targeted exa ms where dose is matched to clinical indication); or iterative reconstruction.
--- NOTE | 2022-06-30 17:11 | W.ED.GENAD ---
Discharge Plan Disposition Patient Disposition: Home Discharge Details Clinical Impression: Post-op pain Primary Care Provider: Theresa De Leon ED Provider: Roslyn Santoyo Home Meds and New Rx's Prescriptions: Continued oxycodone 5 mg tablet 5 mg PO Q6H MDD 8 PRN (Reason: pain) Qty: 20 0RF Rx Instructions: may take 1 to 2 tab every 6 hr as needed tamsulosin [Flomax] 0.4 mg capsule 0.4 mg PO DAILY Qty: 5 0RF naproxen [Naprosyn] 500 mg tablet 500 mg PO BID Qty: 10 0RF Discharge Instructions Instructions: Constipation (ED), Abdominal Pain (ED) Additional Instructions: No evidence for PE or blood clot in your lungs, no free fluid or evidence for your pain. Please follow-up with your surgeon or PCP. Follow up with primary care provider in 3-5 days. Return to ED sooner if any worsening or concerns. Increase oral fluids. Please take Tylenol or Ibuprofen with food every 4-6 hours as needed for pain and swelling. Referrals: Theresa De Leon [Primary Care Provider] - 3 days Medical Decision Making 46-year-old male presents to the ER with a chief complaint of mid abdominal pain which radiates into his back began earlier today. Patient is 3 days postoperative from a right shoulder surgery with rotator cuff repair at [facility]. He reports squeezing type pain which radiates into his back, nausea no vomiting he is febrile 38.2 upon arrival. He reports dysuria as well and dry mouth. He has been taking oxycodone for pain which has provided little to no relief. He reports normal bowel movements. Denies vomiting or blood in his stool. He does take aspirin daily. Work-up ordered including CBC CMP lactate, blood cultures x2, urinalysis, 500 cc normal saline, morphine and Zofran. Will order CT chest abdomen pelvis. Differential diagnosis includes but not limited to PE, bowel obstruction, GERD, constipation, On reevaluation patient reports he feels much better than when he first came in. I did order 400 magnesium p.o. due to magnesium of 1.7, white blood cell count is 10.9, lactate 1.4 which is normal limits CMP largely within normal limits glucose 116 urinalysis shows trace blood no leukocytes no nitrites. I do suspect that this is just postoperative unk discomfort, dysuria is probably from the [place]. I did discuss the CT results with him no PE no free fluid. I also discussed with him possible constipation. He verbalized understanding. I encouraged him to take Tylenol or ibuprofen and follow-up with his surgeon or PCP. After evaluation there is documented an O2 sat of 89%, on reevaluation he is satting 95 to 97%. He does have some wheezing noted he reports that he does use an albuterol inhaler which he did not use today he also reports I use my inhaler right before I use my bong. Patient does endorse marijuana use. I did instruct him to use his albuterol as soon as he gets home. He verbalizes understanding. This text was generated using [employer] system, please disregard any oddities of phrase or misspellings. Medical Records Medical records reviewed: Yes I reviewed the patient's medical records. Lab Data Lab results reviewed: Yes I reviewed the patient's lab results. Labs: 06/30/22 17:45 Blood Blood Culture - Pending 06/30/22 17:19 Blood Blood Culture - Pending Laboratory Tests Range/Units 06/30/22 06/30/22 06/30/22 17:19 17:19 17:19 WBC (4.4-10.8) 10^3/uL 10.91 H RBC (4.36-5.78) 10^6/uL 4.46 Hgb (13.5-17.5) g/dL 14.8 Hct (40.0-50.0) % 42.4 MCV (80-95) fL 95 MCH (27.0-33.0) pg 33.2 H MCHC (32.0-36.0) % 34.9 RDW (11.8-14.1) % 13.4 Plt Count (130-400) 10^3/uL 290 MPV (8.0-11.0) fL 9.5 Immature Gran % 0.4 Neutrophils % 66.2 Lymphocytes % 20.3 Monocytes % 7.9 Eosinophils % 4.9 Basophils % 0.3 Nucleated RBC % (0.0-0.3) % 0.0 Absolute Neutrophils (1.2-6.7) 10^3/uL 7.22 H Absolute Lymphocytes (1.2-3.4) 10^3/uL 2.21 Absolute Monocytes (0.1-0.8) 10^3/uL 0.86 H Absolute Eosinophils (0.0-0.7) 10^3/uL 0.53 Absolute Basophils (0.0-0.2) 10^3/uL 0.03 VBG Lactate (0.6-1.4) mmol/L 1.4 Sodium (136-145) mmol/L 139 Potassium (3.5-5.1) mmol/L 3.7 Chloride (98-107) mmol/L 103 Carbon Dioxide (21.0-32.0) mmol/L 27.0 Anion Gap (3-11) mmol/L 9.0 BUN (7-18) mg/dL 9 Creatinine (0.70-1.30) mg/dL 1.1 Est GFR (CKD-EPI 2020) (mL/min/1.73m2) 84.37 Glucose (74-106) mg/dL 116 H Calcium (8.5-10.1) mg/dL 8.9 Magnesium (1.8-2.4) mg/dL 1.7 L Total Bilirubin (0.2-1.0) mg/dL 0.5 AST (15-37) U/L 31 ALT (16-63) U/L 72 H Alkaline Phosphatase (46-116) U/L 76 Total Protein (6.4-8.2) g/dL 6.7 Albumin (3.4-5.0) g/dL 3.6 Lipase (16-77) U/L 58 Urine Color (Yellow) Urine Clarity (Clear) Urine pH (5-8) Ur Specific [place] (1.005-1.025) Urine Protein (Negative) mg/dL Urine Ketones (Negative) mg/dL Urine Blood (Negative) Urine Nitrite (Negative) Urine Bilirubin (Negative) Urine Urobilinogen (Up to 0.2) mg/dL Ur Leukocyte Esterase (Negative) Urine RBC (0-2) HPF Urine WBC (0-5) HPF Ur Epithelial Cells (Negative) HPF Urine Crystals (Negative) HPF Urine Bacteria (Negative) HPF Urine Casts (Negative) LPF Urine Mucus (Negative) Urine Other (Negative) Ur Culture Indicated? Urine Glucose (Negative) mg/dL Range/Units 06/30/22 17:54 WBC (4.4-10.8) 10^3/uL RBC (4.36-5.78) 10^6/uL Hgb (13.5-17.5) g/dL Hct (40.0-50.0) % MCV (80-95) fL MCH (27.0-33.0) pg MCHC (32.0-36.0) % RDW (11.8-14.1) % Plt Count (130-400) 10^3/uL MPV (8.0-11.0) fL Immature Gran % Neutrophils % Lymphocytes % Monocytes % Eosinophils % Basophils % Nucleated RBC % (0.0-0.3) % Absolute Neutrophils (1.2-6.7) 10^3/uL Absolute Lymphocytes (1.2-3.4) 10^3/uL Absolute Monocytes (0.1-0.8) 10^3/uL Absolute Eosinophils (0.0-0.7) 10^3/uL Absolute Basophils (0.0-0.2) 10^3/uL VBG Lactate (0.6-1.4) mmol/L Sodium (136-145) mmol/L Potassium (3.5-5.1) mmol/L Chloride (98-107) mmol/L Carbon Dioxide (21.0-32.0) mmol/L Anion Gap (3-11) mmol/L BUN (7-18) mg/dL Creatinine (0.70-1.30) mg/dL Est GFR (CKD-EPI 2020) (mL/min/1.73m2) Glucose (74-106) mg/dL Calcium (8.5-10.1) mg/dL Magnesium (1.8-2.4) mg/dL Total Bilirubin (0.2-1.0) mg/dL AST (15-37) U/L ALT (16-63) U/L Alkaline Phosphatase (46-116) U/L Total Protein (6.4-8.2) g/dL Albumin (3.4-5.0) g/dL Lipase (16-77) U/L Urine Color (Yellow) Yellow Urine Clarity (Clear) Clear Urine pH (5-8) 6.5 Ur Specific [place] (1.005-1.025) 1.015 Urine Protein (Negative) mg/dL Negative Urine Ketones (Negative) mg/dL Negative Urine Blood (Negative) Trace-intact H Urine Nitrite (Negative) Negative Urine Bilirubin (Negative) Negative Urine Urobilinogen (Up to 0.2) mg/dL 0.2 Ur Leukocyte Esterase (Negative) Negative Urine RBC (0-2) HPF 5-10 H Urine WBC (0-5) HPF 0-2 Ur Epithelial Cells (Negative) HPF Many Urine Crystals (Negative) HPF Negative Urine Bacteria (Negative) HPF Negative Urine Casts (Negative) LPF Negative Urine Mucus (Negative) Negative Urine Other (Negative) Negative Ur Culture Indicated? No Urine Glucose (Negative) mg/dL Negative HPI General Mode of arrival: ambulatory. Date/Time Provider Initiated Documentation: 06/30/22 16:31. Limitations to Documentation: no limitations. Information obtained by: patient, RN notes reviewed and old records reviewed. HPI Narrative: 46-year-old male presents to the ER with a chief complaint of mid abdominal pain which radiates into his back began earlier today. Patient is 3 days postoperative from a right shoulder surgery with rotator cuff repair at [facility]. He reports squeezing type pain which radiates into his back, nausea no vomiting he is febrile 38.2 upon arrival. He reports dysuria as well and dry mouth. He has been taking oxycodone for pain which has provided little to no relief. He reports normal bowel movements. Denies vomiting or blood in his stool. He does take aspirin daily. Related Data Home Medications Medication Instructions Recorded Confirmed naproxen 500 mg tablet (Naprosyn) 500 mg PO BID #10 tabs 06/21/19 06/30/22 tamsulosin 0.4 mg capsule (Flomax) 0.4 mg PO DAILY #5 caps 06/21/19 06/30/22 oxycodone 5 mg tablet 5 mg PO Q6H PRN pain #20 tabs 06/22/19 06/30/22 Previous Rx's Medication Instructions Recorded naproxen 500 mg tablet (Naprosyn) 500 mg PO BID #10 tabs 06/21/19 tamsulosin 0.4 mg capsule (Flomax) 0.4 mg PO DAILY #5 caps 06/21/19 oxycodone 5 mg tablet 5 mg PO Q6H PRN pain #20 tabs 06/22/19 Allergies Allergy/AdvReac Type Severity Reaction Status Date / Time No Known Allergies Allergy Unverified 06/30/22 16:46 General Stated Complaint: Abd Prob BRAD: 3 Review of Systems All systems reviewed & are unremarkable except as noted in HPI and below Constitutional Constitutional: Reports as per HPI and Reports fever(s) Cardiovascular Cardiovascular: Denies chest pain Respiratory Respiratory: Reports cough and Reports excessive phlegm production Gastrointestinal Gastrointestinal: Reports as per HPI, Reports abdominal pain and Reports nausea Genitourinary Genitourinary: Reports dysuria PFSH All Active Problems (Updated 06/30/22 @ 18:45 by Roslyn Santoyo NP) Post-op pain (Acute) Social History Smoking/Tobacco Use Status: Former Tobacco Use Smoking risk assessment performed?: Yes Alcohol Intake: current Drug use: Never Substance use type: marijuana Do you feel safe at home: Yes Do you feel safe in your relationship?: Yes Exam Narrative Exam Narrative: Constitutional: Alert and oriented x3. Appears stated age. Normal body habitus. Head: Normocephalic, no trauma. Eyes: Pupils PERRL, Red reflex noted, EOM's intact. Eyelids symmetrical without lesions, discharge, or swelling. ENT: Bilateral TM's WNL, External ear normal to inspection, no mastoid TTP, swelling, or erythema, Nasal turbinates WNL, no nasal discharge. Normal dentition, Posterior pharynx WNL, no exudate. Chest: RRR, Normal S1, S2, distal pulses intact. Resp: Inspiratory wheezes noted to ascultation, Abdomen: Soft, non-distended, Normoactive bowel sounds all 4 quads. Musculoskeletal: Normal gait, 5/5 strength to all four extremities. Does have a sling in place right shoulder. Skin: No suspicious rashes or lesions. Capillary refill less than 2 sec. Neurologic: Cranial nerves II-XII intact. Alert and oriented x 3. Motor: No deficits noted. Sensory: Intact bilaterally all 4 extremities. Reflexes: DTR's intact bilaterally.. Hematologic/Lymphatic: No ecchymosis, no lymphadenopathy. Course Vital Signs Vital signs: Vital Signs Temperature 37.3 C 06/30/22 16:41 Pulse 74 06/30/22 16:41 Respiratory Rate 15 06/30/22 16:41 Blood Pressure 136/78 06/30/22 16:41 Pulse Oximetry 95 06/30/22 16:41 Temperature 37.3 C 06/30/22 16:41 Temperature Source Oral 06/30/22 16:41 Pulse 74 06/30/22 16:41 Respiratory Rate 15 06/30/22 16:41 Blood Pressure 136/78 06/30/22 16:41 Blood Pressure Position Sitting 06/30/22 16:41 Pulse Oximetry 95 06/30/22 16:41 Oxygen Delivery Method Room Air 06/30/22 16:41 Oxygen Flow Rate 0 06/30/22 16:41 Lab/Test Results Lab/Test Results: 06/30/22 17:02 Blood Blood Culture - Pending 06/30/22 17:02 Blood Blood Culture - Pending
[2022-06-30 17:28] LABS: Abs Immature Grans 0.04 10^3/uL (0.0-0.06); Absolute Basophil Count 0.03 10^3/uL (0.0-0.2); Absolute Lymphocyte Count 2.21 10^3/uL (1.2-3.4); Absolute Monocyte Count 0.86 10^3/uL (0.1-0.8); Basophils % 0.3; Eosinophils % 4.9; HCT 42.4 % (40.0-50.0); HGB 14.8 g/dL (13.5-17.5); Immature Grans % 0.4; Lactate 1.4 mmol/L (0.6-1.4); Lymphocytes % 20.3; MCH 33.2 pg (27.0-33.0); MCHC 34.9 % (32.0-36.0); MCV 95 fL (80-95); MPV 9.5 fL (8.0-11.0); Monocytes % 7.9; Neutrophils % 66.2; Platelet Count 290 10^3/uL (130-400); RBC 4.46 10^6/uL (4.36-5.78); RDW 13.4 % (11.8-14.1); RDW-SD 47.3 fL; WBC 10.91 10^3/uL (4.4-10.8)
[2022-06-30] MEDS: MORPHine 4 MG/ML SYR IVP (17:29)
[2022-06-30 17:30] LABS: Absolute Eosinophil Count 0.53 10^3/uL (0.0-0.7); Absolute Neutrophil Count 7.22 10^3/uL (1.2-6.7)
[2022-06-30] MEDS: Normal Saline 250 ML 500 ML IV (17:30)
[2022-06-30] MEDS: Ondansetron 4 MG/2 ML VIAL IVP (17:30)
[2022-06-30 17:45] LABS: ALT 72 U/L (16-63); AST 31 U/L (15-37); Albumin 3.6 g/dL (3.4-5.0); Alkaline Phosphatase 76 U/L (46-116); BUN 9 mg/dL (7-18); Bilirubin, Total 0.5 mg/dL (0.2-1.0); CREATININE 1.1 mg/dL (0.70-1.30); Calcium 8.9 mg/dL (8.5-10.1); Chloride 103 mmol/L (98-107); Estimated GFR 84.37 (mL/min/1.73m2); Glucose 116 mg/dL (74-106); Lipase 58 U/L (16-77); Magnesium 1.7 mg/dL (1.8-2.4); Potassium 3.7 mmol/L (3.5-5.1); Sodium 139 mmol/L (136-145); Total Protein 6.7 g/dL (6.4-8.2)
[2022-06-30 18:02] LABS: Bilirubin Negative (Negative); Blood Trace-intact (Negative); Clarity Clear (Clear); Glucose Negative (Negative); Ketones Negative (Negative); Leukocyte Esterase Negative (Negative); Nitrite Negative (Negative); Specific Gravity 1.015 (1.005-1.025); Urobilinogen 0.2 mg/dL (Up to 0.2); pH 6.5 (5-8)
[2022-06-30 18:03] LABS: WBC 0-2 HPF (0-5)
[2022-06-30 18:04] LABS: Bacteria Negative HPF (Negative); C & S Indicated? No; Casts Negative LPF (Negative); Crystals Negative HPF (Negative); Epithelial Cells Many HPF (Negative); Mucus Negative (Negative); Other Cells Negative (Negative)
[2022-06-30] MEDS: Omnipaque 350 MG/ML 500 ML BTL-Imaging package IJ (18:10)
[2022-06-30] MEDS: Normal Saline - Diluent 50 ML VIAL IJ (18:11)
--- NOTE | 2022-06-30 18:35 | DI.VRAD_ITS ---
PROCEDURE INFORMATION: Exam: CTA Chest With Contrast Exam date and time: 06/30/2022 17:57 Age: 46 years old Clinical indication: Other: Cough, status post rotator cuff surgery x3 days ago TECHNIQUE: Imaging protocol: Computed tomographic angiography of the chest with contrast. 3D rendering (Not supervised by radiologist): MIP and/or 3D reconstructed images were created by the technologist. Radiation optimization: All CT scans at this facility use at least one of these dose optimization techniques: automated exposure control; mA and/or kV adjustment per patient size (includes targeted exams where dose is matched to clinical indication); or iterative reconstruction. Contrast material: OMNIPAQUE 350; Contrast volume: 100 ml; Contrast route: INTRAVENOUS (IV); COMPARISON: CR XR CHEST 2V PA LATERAL 04/15/2018 19:27 FINDINGS: Pulmonary arteries: No pulmonary emboli. Aorta: No aortic aneurysm. Study not timed to optimally assess the aorta for dissection. Lungs: There are benign, calcified pulmonary granulomas. Minor scattered subsegmental atelectasis without consolidation to suggest pneumonia or pulmonary infarct. Pleural spaces: No pneumothorax. No pleural effusion. Heart: No cardiomegaly. No pericardial effusion. Lymph nodes: Mildly prominent subcarinal lymph node. Mildly prominent right hilar lymph node. Bones/joints: No acute fracture or subluxation. Soft tissues: Gynecomastia. IMPRESSION: 1. No pulmonary emboli are seen. 2. Additional findings as described. PROCEDURE INFORMATION: Exam: CT Abdomen And Pelvis With Contrast Exam date and time: 06/30/2022 17:57 Age: 46 years old Clinical indication: Other: Cough, status post rotator cuff surgery x3 days ago TECHNIQUE: Imaging protocol: Computed tomography of the abdomen and pelvis with contrast. Radiation optimization: All CT scans at this facility use at least one of these dose optimization techniques: automated exposure control; mA and/or kV adjustment per patient size (includes targeted exams where dose is matched to clinical indication); or iterative reconstruction. Contrast material: OMNIPAQUE 350; Contrast volume: 100 ml; Contrast route: INTRAVENOUS (IV); COMPARISON: CT RENAL COLIC WO 06/21/2019 08:23 FINDINGS: Liver: Fatty liver with no mass lesions. Gallbladder and bile ducts: Cholecystectomy. Typical caliber of the CBD for a post cholecystectomy patient. Pancreas: No ductal dilation. No masses. Spleen: No splenomegaly or focal lesions. Adrenal glands: No mass. Kidneys and ureters: Nonobstructive subcentimeter left nephrolithiasis. No renal masses or hydronephrosis bilaterally. Stomach and bowel: Colonic diverticulosis without diverticulitis. No focal pathology in the small bowel. Appendix: No evidence of appendicitis. Intraperitoneal space: No free air. No significant fluid collection. Vasculature: No abdominal aortic aneurysm. Lymph nodes: No significantly enlarged lymph nodes. Urinary bladder: Unremarkable as visualized. Reproductive: Unremarkable as visualized. Bones/joints: Degenerative changes in the spine. No acute fracture or subluxation. Soft tissues: Minor dependent subcutaneous edema. IMPRESSION: 1. No acute findings. 2. Incidental findings as described. Dictated and Authenticated by: Ines Taylor MD. Ordering:BRIAN Mcgowan MD
[2022-06-30] MEDS: Magnesium Oxide 400 MG TAB PO (18:51)
== END 2022-06-30 19:00 | disposition home or self-care (01) ==
PROVIDERS: Emergency Provider Registered Nurse Emergency; PCP Nurse Practitioner Family
DX: G89.18 Other acute postprocedural pain (principal); R10.9 Unspecified abdominal pain; M54.9 Dorsalgia, unspecified; R11.0 Nausea; R30.0 Dysuria; R68.2 Dry mouth, unspecified; R06.2 Wheezing; F12.90 Cannabis use, unspecified, uncomplicated; Z98.890 Other specified postprocedural states
CPT/HCPCS: 36410; 36415; 71275; 74177; 80053; 83690; 87040; 96361; 96374; 96375; 99285; 81003; 81015; 83605; 83735; 85025; 99284; J2270; J2405

== ENCOUNTER 2022-07-24 12:00 | Outpatient (CLI) | payer SELFPAY ==
--- NOTE | 2022-07-24 12:14 | DI.RAD_ITS ---
Exam(s) XR CHEST 2V PA LATERAL EXAM: XR CHEST 2V PA LATERAL CLINICAL HISTORY: WHEEZING R06.2 COUGH WHEEZE O2 SAT 94%. TECHNIQUE: 2D digital imaging was performed. COMPARISON: CR XR CHEST 2V PA LATERAL from 04/15/2018 FINDINGS: 2 views: Compared to prior outside images of 04/15/2018. Heart size is normal. The mediastinum is not widened. Lungs are clear. No infiltrates nor pleural effusions. IMPRESSION: No acute pulmonary findings. DATA REPOSITORY: RADIATION DOSE DELIVERED:
== END 2022-07-24 12:20 ==
PROVIDERS: PCP Nurse Practitioner Family; Visit Provider Nurse Practitioner Family
DX: R06.2 Wheezing (principal)
CPT/HCPCS: 71046

== ENCOUNTER → 2023-04-08 16:03 | Outpatient (CLI) | payer SELFPAY ==
--- NOTE | 2023-04-08 15:08 | DI.RAD_ITS ---
Exam(s) XR CERVICAL SPINE COMP 4-5V EXAM: XR CERVICAL SPINE COMP 4-5V CLINICAL HISTORY: CERVICALGIA, M54.2. TECHNIQUE: 2D digital imaging was performed. Five views were performed. COMPARISON: No exams were available for comparison FINDINGS: BONES: No fracture or destructive lesion. Vertebral bodies are unremarkable. Endplate osteophytes fr om C4 through C7. DISKS: Mild narrowing of the C3 4 insert and C4-5 disc space moderate narrowing of the C5-6 and C6-7 disc spaces. Neural foramina suboptimally profiled. Question neural foraminal narrowing on the left at C5-6. Neural foraminal narrowing on the right at C6-7. ALIGNMENT: Cervical spinal alignment is within normal limits. The odontoid and atlantoaxial articulat ions are normal. SOFT TISSUE: Normal. The lung apices are clear. IMPRESSION: Degenerative changes greatest at C5-6 and C6-7. DATA REPOSITORY: RADIATION DOSE DELIVERED:
== END ==
PROVIDERS: PCP Nurse Practitioner Family; Visit Provider Nurse Practitioner Family
DX: M50.322 Other cervical disc degeneration at C5-C6 level (principal)
CPT/HCPCS: 72050

== ENCOUNTER 2024-01-15 02:32 | Outpatient (CLI) | payer OTHER, SELFPAY ==
--- NOTE | 2024-01-15 | DI.MRI_ITS ---
Exam(s) MR CERVICAL SPINE WO EXAM: MR CERVICAL SPINE WO CLINICAL HISTORY: CERVICALGIA M54.2 PARESTHESIAS R20.2 RT HAND WEAKNESS R29.898 SPONDYLOSIS TECHNIQUE: Multiplanar multisequence MRI of the cervical spine was performed without intravenous con trast. COMPARISON: CR XR CERVICAL SP SIMMS TRAUMA 2-3V from 01/15/2024 FINDINGS: CERVICOMEDULLARY JUNCTION: Intact with no evidence of cerebellar tonsillar ectopia. No obvious abnor mality of the odontoid process. No evidence of Chiari 1 malformation. CERVICAL SPINAL CORD: There is no abnormal signal in the cervical spinal cord and no evidence of foca l cord atrophy nor focal cord swelling. OSSEOUS:There are no cervical fractures evident. No significant osseous lesions in the cervical vert ebrae. There is straightening of the cervical curvature noted. INDIVIDUAL LEVELS: C2-3: No disc herniation nor central canal stenosis. No foraminal stenosis. No facet arthropathy. C3-4: Relatively preserved disc height. There is central posterior subligamentous annular bulging wh ich flattens the anterior thecal sac but not the spinal cord. Central canal dimensions are lower nor mal at this level. There is no significant facet arthropathy at this level. Minimal foraminal steno sis. C4-5: Relatively preserved disc height. Anterior osseous lipping. Mild posterior annular bulging fl attens the thecal sac not the spinal cord. No significant facet arthropathy.No significant foraminal stenosis. C5-6: This level exhibits moderate disc space narrowing. Anterior osseous lipping. There are left-s ided Luschka joint osteophytes at this level; smaller on the right side. There is symmetrical mild a nnular bulging at this level which flattens the anterior thecal sac. Central canal dimensions lower normal. AP measurement of the canal is 9.5 mm at this level. Facet joints appear unremarkable bilat erally at this level. There is mild foraminal stenosis on the left side due to the Luschka joint ost eophytes. No significant foraminal stenosis on the right side. C6-7: This level exhibits chronic advanced disc space narrowing and anterior osseous lipping. There are bilateral Luschka joint osteophytes at this level, slightly larger on the right side. There is m ild annular bulging which flattens the anterior thecal sac. Central canal dimensions are lower malia l. AP measurement of the canal at this level is 10.5 mm. On the right side there is posterolateral disc-Luschka joint osteophyte complex. There is only mild foraminal stenosis on the right side. No significant foraminal stenosis on the left side. Facet joints appear unremarkable at this level. C7-T1: This level exhibits moderate disc space narrowing and anterior osseous lipping. There is mild symmetrical annular bulging without significant disc herniation and central canal dimensions are wit hin normal limits at this level. Are bilateral foraminal level small disc bulges bilaterally at this level. However, there is no significant foraminal stenosis on either side at this level. Facet sherice nts at this level appear unremarkable. IMPRESSION: 1. Multilevel mild findings as described individually above. There is no prominent disc herniation, prominent canal stenosis, nor prominent foraminal stenosis in the cervical spine. 2. There is minimal if any significant facet arthropathy in the cervical spine. 3. No abnormal signal evident in the cervical spinal cord. DATA REPOSITORY:
--- NOTE | 2024-01-15 | DI.MRI_ITS ---
Exam(s) MR LUMBAR SPINE WO EXAM: MR LUMBAR SPINE WO CLINICAL HISTORY: CERVICALGIA M54.2 PARESTHESIAS R20.2 RT HAND WEAKNESS R29.898 LOW BACK PAIN. TECHNIQUE: Multiplanar multisequence MRI of the Lumbar spine was performed. COMPARISON: MR MRI - LUMBAR SPINE WO CONTRAST from 04/20/2013 FINDINGS: Conus medullaris is at normal level. There is no evidence of conus mass nor subjacent clumping of in trathecal nerve roots to suggest arachnoiditis. The distal thecal sac appears unremarkable.There is no evidence of Tarlov intrasacral cysts nor other significant findings within the sacral canal Bones:There are no fractures nor ominous osseous lesions in the lumbar vertebral bodies and visualize d sacrum. With respect to the individual levels... T12-L1: Unremarkable L1-2: Normal disc height and signal. No disc herniation nor central canal stenosis.No foraminal steno sis L2-3: Level exhibits moderate disc space narrowing and lateral left osteophytes. There are Modic typ e 2 sub endplate fatty marrow changes both sides of this disc space, not previously present in 2014. Posteriorly there is asymmetric left-sided annular bulging at the level of the left lateral recess a nd exiting left neural foramen, not previously present..There is, however, no significant left-sided foraminal stenosis at this level. No central canal stenosis. Exiting right neural foramen is widely patent.Facet joints appear unremarkable at this level. L3-4: Normal disc height. Mild symmetrical annular bulging but no focal disc herniation or central c anal stenosis.No foraminal stenosis.No facet arthropathy. L4-5: Normal disc height and signal. Mild posterior annular bulging, most prominent at the level of the exiting left neural foramen but without significant foraminal stenosis on either side at this lev el. Central canal dimensions are also within normal limits. Facet joints appear unremarkable. L5-S1: This level again exhibits some disc space narrowing and Modic type 2 sub endplate fatty marrow changes. Posteriorly there is annular bulging more prominent on the left than right side and extend ing into the floor of the exiting left neural foramen, with mild left-sided foraminal stenosis now ev ident. There is no central canal stenosis. Minimal if any significant narrowing of the exiting righ t neural foramen. There are mild degenerative changes in the facet joints, slightly more so on the r ight side. Soft tissues: paraspinal soft tissues appear unremarkable. IMPRESSION: Findings as above which exhibit some mild progression at the L5-S1 level and at the L2-3 level when c ompared to the prior MRI scan of March 2013 DATA REPOSITORY:
--- NOTE | 2024-01-15 09:40 | DI.RAD_ITS ---
Exam(s) XR CERVICAL SP SIMMS TRAUMA 2-3V EXAM: XR CERVICAL SP SIMMS TRAUMA 2-3V CLINICAL HISTORY: CERVICALGIA M54.2. TECHNIQUE: 2D digital imaging was performed. Three images were obtained. AP, odontoid and lateral images were obtained. COMPARISON: CR XR CERVICAL SPINE COMP 4-5V from 04/08/2023 FINDINGS: The odontoid is intact. The lateral masses are well aligned. There is straightening of the normal ce rvical lordosis. There is disc space narrowing at C6-C7 and C7-T1. Endplate osteophytes are seen in the cervical spine from C4-5 through C7-T1. No acute fracture or subluxation is present. The cervic al thoracic junction is well maintained. The prevertebral soft tissues are unremarkable. Lung apices are clear. IMPRESSION: Moderate cervical spondylosis. DATA REPOSITORY: RADIATION DOSE DELIVERED:
--- NOTE | 2024-01-15 09:42 | DI.RAD_ITS ---
Exam(s) XR LUMBAR SPINE COMP W FLEX/EX EXAM: XR LUMBAR SPINE COMP W FLEX/EX CLINICAL HISTORY: PARESTHESIAS R20.2 LOW BACK PAIN M54.50. TECHNIQUE: 2D digital imaging was performed of the lumbar spine. Four images were obtained. AP, la teral, flexion and extension views were obtained. COMPARISON: No exams were available for comparison FINDINGS: BONES: No fracture or destructive lesion. Endplate osteophytes are seen at L2-L3 and L3-L4. No facet hypertrophy identified. DISKS: There is disc space narrowing at L2-L3. ALIGNMENT: Lumbar spinal alignment is within normal limits. No spondylolysis or spondylolisthesis. N o significant subluxation is seen with flexion or extension. SOFT TISSUE: There are surgical clips in the right upper quadrant of the abdomen. IMPRESSION: [id number] degenerative changes seen in the lumbar spine. DATA REPOSITORY: RADIATION DOSE DELIVERED:
== END 2024-01-15 02:52 ==
LOC: DI 02:33
PROVIDERS: PCP Nurse Practitioner Family; Visit Provider Nurse Practitioner Family
DX: M48.03 Spinal stenosis, cervicothoracic region (principal)
CPT/HCPCS: 72114; 72040; 72141; 72148

== ENCOUNTER 2024-07-13 02:00 | Outpatient (CLI) | payer OTHER, SELFPAY ==
--- NOTE | 2024-07-13 06:45 | DI.MRI_ITS ---
Exam(s) MR BRAIN WO EXAM: MR BRAIN WO CLINICAL HISTORY: left face paraesthesia,r20.2 TECHNIQUE: Multiplanar multisequence MRI of the brain was performed. COMPARISON: No exams were available for comparison FINDINGS: VENTRICLES AND EXTRA AXIAL SPACES: Normal in size and morphology for the patient's age. MIDLINE SHIFT: None. CEREBRAL PARENCHYMA: No focus of restricted diffusion to suggest acute infarct. No space-occupying le lia identified. HEMORRHAGE: None. BRAINSTEM/CEREBELLUM: Normal. CALVARIUM: Normal. VISUALIZED PARANASAL SINUSES/MASTOIDS:Clear. POINT LAY IRA OF [place]: Normal flow void. PITUITARY GLAND: There is a thin rim of patellar tissue in the floor of the sella which may represent a partially empty sella. OTHER FINDINGS: Hypointense signal seen in the region of the left Meckel's cave. Artifact versus mas s. IMPRESSION: 1. No evidence of an acute infarct. 2. Question of hypointense signal seen in the region of the left Meckel's cave. Artifact versus mass . MRI of the brain with focus of the area without and with contrast is recommended for further evalu ation. DATA REPOSITORY:
== END 2024-07-13 02:20 ==
LOC: DI 02:00
PROVIDERS: PCP Nurse Practitioner Family; Visit Provider Psychiatry & Neurology Neurology
DX: R20.2 Paresthesia of skin (principal); R93.89 Abnormal findings on diagnostic imaging of other specified body structures
CPT/HCPCS: 70551

== ENCOUNTER 2024-08-05 02:11 | Outpatient (CLI) | payer OTHER, SELFPAY ==
--- NOTE | 2024-08-05 07:30 | DI.MRI_ITS ---
Exam(s) MR IAC BRAIN WO/W EXAM: MR IAC BRAIN WO/W CLINICAL HISTORY: facial paresthesia, r20.2,closer look at lt meckels cave. TECHNIQUE: Multiplanar multisequence MRI of the brain and internal auditory canals was performed. CONTRAST MATERIAL: IV Contrast: 20 mL of Dotarem contrast administered. COMPARISON: MR MR BRAIN WO from 07/13/2024 FINDINGS: The examination is limited due to patient motion artifact. VENTRICLES AND EXTRA AXIAL SPACES: Normal in size and morphology for the patient's age. HEMORRHAGE: None. CEREBRAL PARENCHYMA: No focus of restricted diffusion to suggest acute infarct. No space-occupying le lia identified. MIDLINE SHIFT: None. BRAINSTEM/CEREBELLUM: Normal. CALVARIUM: Normal. ENHANCEMENT: No suspicious enhancement identified. VISUALIZED PARANASAL SINUSES/MASTOIDS: Clear. POINT LAY IRA OF [place]: Normal flow void. PITUITARY GLAND: There is a partially empty sella. IAC/CP ANGLE: The internal auditory canals are within normal limits. The cerebellar pontine angles ar e unremarkable. No enhancing lesions are seen. Visualized portion of the facial nerves appear within normal limits. No evidence of a mass or enhancing lesion is seen in Meckel's cave. OTHER FINDINGS: None. IMPRESSION: Unremarkable MRI of the brain and internal auditory canals. DATA REPOSITORY:
[2024-08-05] MEDS: Gadoterate meglumine 20 ML SYRINGE IVP (12:24)
[2024-08-05] MEDS: Normal Saline Flush 10 ML SYR IVP (12:25)
== END 2024-08-05 02:31 ==
LOC: DI 02:12
PROVIDERS: PCP Nurse Practitioner Family; Visit Provider Psychiatry & Neurology Neurology
DX: R20.2 Paresthesia of skin (principal)
CPT/HCPCS: 70553